=== PATIENT | male | born 1990 | race Caucasian/White ===

== ENCOUNTER 2022-02-03 12:04 | Emergency (ER) | payer OTHER ==
[~2022-02-03] VITALS: Ht 180.3 cm; Wt 95.2 kg
[~2022-02-03 12:04] MED LIST: HYDR1TAB94 PO; PERM5TC TOP; PROCODE120 PO
== END 2022-02-03 13:37 | disposition home or self-care (01) ==
LOC: ER 12:04
DX: R09.81 Nasal congestion (principal); F17.210 Nicotine dependence, cigarettes, uncomplicated
CPT/HCPCS: 99282